=== PATIENT | female | born 1985 | race Caucasian/White ===

== ENCOUNTER 2021-04-15 10:10 | Outpatient (CLI) | payer BC, SELFPAY ==
--- NOTE | ~2021-04-15 | US_ITS ---
EXAMINATION: US right upper quadrant DATE: 04/15/2021 11:04 INDICATION: Epigastric pain TECHNIQUE: Multiple grayscale and Doppler ultrasound images of the abdomen were obtained. COMPARISON: None available FINDINGS: The head and body of the pancreas are normal. The pancreatic tail is obscured by bowel gas. The liver is normal with normal echogenicity and echotexture. No surface nodularity. Normal hepatope sandeep flow in the main portal vein. The gallbladder is normal with no abnormal wall thickening, pericho lecystic fluid or stones. The normal common bile duct measures 4 mm. There was no sonographic Joseph sign. IMPRESSION: 1. Normal sonographic study of the gallbladder. Reviewed, dictated and finalized at location A. RNATIONAL FREIGHT FORWARDER
== END 2021-04-15 10:11 ==
PROVIDERS: Visit Provider Internal Medicine
DX: R10.13 Epigastric pain (principal)
CPT/HCPCS: 76705

== ENCOUNTER 2022-03-02 12:45 | Outpatient (CLI) | payer OTHER, SELFPAY ==
--- NOTE | ~2022-03-02 | US_ITS ---
Pelvic ultrasound. Clinical History: Pelvic pain Technique: Realtime transabdominal and transvaginal scanning of the pelvis was performed. Color flow Doppler and Doppler spectral analysis were performed. Findings: The uterus is anteverted. The endometrial stripe has a thickness of 3 mm. No focal mass is identified. The right ovary measures 1.6 x 2.2 x 2.4 cm. No significant right ovarian or adnexal mass is seen. The left ovary measures 2.7 x 3.1 x 2.2 cm. No significant left ovarian or adnexal mass is seen. Vascular flow present in both ovaries on Doppler spectral analysis. There is no evidence of free fluid in the cul de sac. Impression: Unremarkable pelvic ultrasound. No evidence for torsion. Reviewed, dictated and finalized at [facility]. T RAIL TRAIN OPERATOR Impression: Unremarkable pelvic ultrasound. No evidence for torsion.
== END 2022-03-02 12:46 ==
LOC: GOSHIMG 12:46
PROVIDERS: PCP Internal Medicine; Visit Provider Internal Medicine
DX: R10.2 Pelvic and perineal pain (principal)
CPT/HCPCS: 76830; 76856

== ENCOUNTER 2023-10-16 10:47 | Outpatient (CLI) | payer BC, SELFPAY ==
--- NOTE | ~2023-10-16 | US_ITS ---
EXAMINATION: US pelvic complete w TV DATE: 10/16/2023 11:18 INDICATION: Right adnexal tenderness. TECHNIQUE: Multiple transabdominal and transvaginal sonographic images of the pelvis were obtained. COMPARISON: Ultrasound 03/02/2022 FINDINGS: TRANSABDOMINAL ULTRASOUND: The uterus measures 7.5 x 3.5 x 3.8 cm. There is no free fluid in the pelvis. TRANSVAGINAL ULTRASOUND: The endometrial complex measures 6 mm in thickness. The right ovary measures 2.9 x 2.2 x 1.9 cm. The left ovary measures 3.2 x 2.1 x 2.2 cm. There is normal vascular flow in the ovaries. IMPRESSION: 1. Normal pelvis. Reviewed, dictated and finalized at location A. IMPRESSION: 1. Normal pelvis.
== END 2023-10-16 10:48 ==
LOC: MICIMG 10:48
PROVIDERS: PCP Internal Medicine; Visit Provider Nurse Practitioner Family
DX: R10.2 Pelvic and perineal pain (principal)
CPT/HCPCS: 76830; 76856